=== PATIENT | female | born 1985 | race African-American/Black ===

== ENCOUNTER 2021-03-16 09:55 | Emergency (ER) | payer BC ==
[~2021-03-16] VITALS: Ht 160 cm; Wt 80.3 kg
[2021-03-16 10:00] VITALS: BP_SYST 120
[2021-03-16 11:04] VITALS: BP_SYST 120
== END 2021-03-16 11:05 | disposition home or self-care (01) ==
LOC: SED 09:55
DX: S16.1XXA Strain of muscle, fascia and tendon at neck level, initial encounter (principal); M54.6 Pain in thoracic spine; V49.49XA Driver injured in collision with other motor vehicles in traffic accident, initial encounter; Y93.89 Activity, other specified; Y92.89 Other specified places as the place of occurrence of the external cause; Y99.8 Other external cause status
CPT/HCPCS: 81025; 99283